=== PATIENT | female | born 1970 | race Caucasian/White ===

== ENCOUNTER → 2017-03-10 | Outpatient (CLI) | payer OTHER ==
[~2017-03-10] MED LIST: HYDR-3580 PO; LORT5TAB PO
[2017-03-10 10:50] LABS: AUTOMATED NEUTROPHIL # 5.7 TH/MM3 (1.8-7.7); BASOPHIL % 0.3 % (0.0-2.0); EOSINOPHIL # 0.1 TH/MM3 (0-0.4); EOSINOPHIL % 0.9 % (0.0-4.0); HEMATOCRIT 40.8 % (35.0-46.0); HEMOGLOBIN 13.9 GM/DL (11.6-15.3); LYMPH % 27.1 % (9.0-44.0); LYMPHOCYTE # 2.5 TH/MM3 (1.0-4.8); MEAN CELL VOLUME 94.6 FL (80.0-100.0); MEAN CORPUSCULAR HEMOGLOBIN 32.3 PG (27.0-34.0); MEAN CORPUSCULAR HGB CONC 34.1 % (32.0-36.0); MEAN PLATELET VOLUME 8.4 FL (7.0-11.0); MONO % 10.9 % (0.0-8.0); NEUT % 60.8 % (16.0-70.0); PLATELET COUNT 244 TH/MM3 (150-450); RED BLOOD COUNT 4.32 MIL/MM3 (4.00-5.30); RED CELL DISTRIBUTION WIDTH 13.8 % (11.6-17.2); WHITE BLOOD COUNT 9.4 TH/MM3 (4.0-11.0)
[2017-03-10 10:52] LABS: BILIRUBIN, URINE NEG (NEG); BLOOD, URINE TRACE (NEG); GLUCOSE,URINE NEG (NEG); KETONE, URINE NEG (NEG); MUCUS URINE FEW /lpf (OCC); NITRITE,URINE NEG (NEG); SQUAMOUS EPITHELIAL CELL URINE 1 /hpf (0-5); URINE COLOR YELLOW (YELLW/STRAW); URINE LEUKOCYTE ESTERASE NEG (NEG)
[2017-03-10 11:06] LABS: BICARBONATE 26.9 MEQ/L (21.0-32.0); BLOOD UREA NITROGEN 12 MG/DL (7-18); CALCIUM 9.3 MG/DL (8.5-10.1); CREATININE 0.54 MG/DL (0.50-1.00); GLOMERULAR FILTRATION RATE 122 ML/MIN (>89); GLUCOSE,FASTING 81 MG/DL (74-99)
[2017-03-10 12:31] LABS: CHLORIDE 105 MEQ/L (98-107); SODIUM (NA) 141 MEQ/L (136-145)
== END ==
LOC: CPRE 10:07
PROVIDERS: ATTEND Obstetrics & Gynecology
DX: Z01.812 Encounter for preprocedural laboratory examination (principal); R10.2 Pelvic and perineal pain
CPT/HCPCS: 36415; 80048; 81001; 84703; 85025

== ENCOUNTER → 2017-05-10 | Outpatient (CLI) | payer OTHER ==
[~2017-05-10] MED LIST changes: -LORT5TAB PO
[2017-05-10 15:23] LABS: HEMATOCRIT 37.6 % (35.0-46.0); HEMOGLOBIN 13.3 GM/DL (11.6-15.3); MEAN CELL VOLUME 93.8 FL (80.0-100.0); MEAN CORPUSCULAR HGB CONC 35.2 % (32.0-36.0); MEAN PLATELET VOLUME 8.3 FL (7.0-11.0); PLATELET COUNT 196 TH/MM3 (150-450); RED BLOOD COUNT 4.01 MIL/MM3 (4.00-5.30); RED CELL DISTRIBUTION WIDTH 14.3 % (11.6-17.2); WHITE BLOOD COUNT 7.9 TH/MM3 (4.0-11.0)
[2017-05-10 15:37] LABS: BILIRUBIN, URINE NEG (NEG); BLOOD, URINE TRACE (NEG); GLUCOSE,URINE NEG (NEG); KETONE, URINE NEG (NEG); NITRITE,URINE NEG (NEG); PH, URINE 5.5 (5.0-8.5); SQUAMOUS EPITHELIAL CELL URINE 2 /hpf (0-5); URINE COLOR YELLOW (YELLW/STRAW); URINE LEUKOCYTE ESTERASE NEG (NEG)
== END ==
LOC: CPRE 14:33
PROVIDERS: ATTEND Obstetrics & Gynecology
DX: Z01.812 Encounter for preprocedural laboratory examination (principal); N93.8 Other specified abnormal uterine and vaginal bleeding; N94.6 Dysmenorrhea, unspecified
CPT/HCPCS: 36415; 81001; 84703; 85027

== ENCOUNTER → 2017-05-25 | Day surgery (SDC) | payer OTHER ==
[~2017-05-25] VITALS: Ht 152.4 cm; Wt 68.1 kg
[~2017-05-25] MED LIST changes: +*morphine SULFATE 8 MG/ML PERIprocedure ONLY ONE; +ACETAMINOPHEN 1000 MG/100 ML 100 ML IV ONE; +BUPIVACAINE/EPINEPHRINE 0.25% 50 ML VIAL ONE; +CELE10TA PO; +CHLORHEXIDINE GLUCONATE 2 % 1 PACK (2 CLOTHS) TOPICAL PRN; +DEXAMETHASONE SOD PHOS 4 MG/ML VIAL IV ONE; +DEXMEDETOMIDINE HCL 200 MCG/2 ML VIAL ONE; +DO NOT ADM ANY ANTICOAGULANT DRUGS PRN; +DOXY100C PO; +FAMOTIDINE 20 MG/2 ML VIAL ONE; +FUROSEMIDE 40 MG/4 ML VIAL ONE; +GLYCOPYRROLATE 1 MG/5 ML SYRINGE IV PUSH ONE; +HYDROmorphone HCL PF 2 MG/ML VIAL ONE; +INSULIN HUMAN REGULAR 1,000 UNITS/10 ML VIAL SQ PRN; +KETOROLAC TROMETHAMINE 30 MG/ML (IVP) VIAL IV PUSH ONE; +KETOROLAC TROMETHAMINE 60 MG/2 ML (IM) VIAL IM PRN; +LACTATED RINGER'S 1000 ML IV PRN; +LIDOCAINE HCL 1% PF 5 ML SYRINGE OTHER ONE; +METOPROLOL TARTRATE 25 MG TAB PO PRN; +MIDAZOLAM HCL 2 MG/2 ML VIAL ONE; +NEOSTIGMINE 5 MG/5 ML SYRINGE IV PUSH ONE; +ONDANSETRON HCL 4 MG/2 ML VIAL IV ONE; +ONDANSETRON HCL 4 MG/2 ML VIAL IV PUSH PRN; +POVIDONE IODINE 5% (ANTISEPSIS KIT) 4 APPLICATIONS EACH NARE PRN; +PROPOFOL 200 MG/20 ML AMP IV ONE; +RESP: ALBUTEROL 2.5 MG/3 ML NEB (PRN) ONE; +ROCURONIUM INJ 50 MG/5 ML SYRINGE IV PUSH ONE; +SODIUM CHLORID 0.9% 500 ML IV PRN; +SODIUM CHLORIDE 0.9% 20 ML VIAL IV ONE; +oxyCODONE/ACETAMINOPHEN 5 MG/325 MG TAB ONE; +oxyCODONE/ACETAMINOPHEN 5 MG/325 MG TAB PO PRN
--- NOTE | 2017-05-25 10:29 | MP ---
cc: Apple Boothe MD DATE OF OPERATION: 05/25/2017 PREOPERATIVE DIAGNOSES: Dysfunctional uterine bleeding, dysmenorrhea, left hydrosalpinx. POSTOPERATIVE DIAGNOSES: Dysfunctional uterine bleeding, dysmenorrhea, left hydrosalpinx. PROCEDURE: Examination under anesthesia, laparoscopic-assisted supracervical hysterectomy, left salpingo-oophorectomy, right salpingectomy, cystoscopy. SURGEON: Dr. Boothe. ANESTHESIA: General endotracheal anesthesia. FLUIDS: 1000 mL crystalloid. ESTIMATED BLOOD LOSS: 150 mL URINE OUTPUT: 400 mL clear yellow at the end of the procedure. FINDINGS: A large left hydrosalpinx was noted with adhesions to the left ovary and the left sigmoid. The rt ovary appeared normal. Uterus appeared normal. PROCEDURE: The patient was taken to the operating room where general anesthesia was found to be adequate. She was then prepped and draped in the normal sterile fashion in the dorsal lithotomy position. A Lynn catheter was inserted into the urinary bladder using sterile technique. A speculum was placed in the vagina. Single-tooth tenaculum applied to the anterior lip of the cervix. The cervix was then gently dilated to accommodate the small-sized VCare uterine manipulator. A stitch was placed in the anterior lip of the cervix. The tenaculum was removed. The VCare was positioned. The balloon was inflated inside of the uterus. The cups were positioned. The speculum was removed. The gloves were changed, and attention was turned to the abdominal portion of the procedure. A 5 mm incision was made just above the umbilicus and a 5 mm trocar and camera were inserted into the abdominal cavity under direct visualization. The abdomen was insufflated with approximately 3.5 liters of CO2 gas. A 5 mm trocar was placed in the right lower quadrant under direct visualization. A 10/12 mm trocar was placed in the left lower quadrant under direct visualization. The findings were then noted as above. The round ligaments were transected bilaterally with the Harmonic scalpel, and the bladder flap was created using the Harmonic scalpel bilaterally. The bladder was gently dissected off the anterior surface of the cervix and the uterus. The distal segment of the right fallopian tube was then transected from the right broad ligament and sent to pathology. The uteroovarian ligaments were transected bilaterally using the Harmonic scalpel, and the remaining broad ligaments, uterine arteries were transected bilaterally using the Harmonic scalpel down to the level of the cervix. The uterus was then amputated from the cervix and extracted, sent to pathology. The cervical canal was cauterized using the Harmonic scalpel. The left hydrosalpinx and left ovary were gently dissected off of the sigmoid colon using the Harmonic scalpel as well blunt dissection. Chocolate fluid was noted within the hydrosalpinx. The infundibulopelvic ligament on the left side was transected using the Harmonic scalpel, and the left tube and ovary were transected from the left broad ligament with the Harmonic scalpel. This was placed in an EndoCatch, removed and sent to pathology. Hemostasis was noted from all the pedicles. Surgicel was placed over the raw surface areas. The pelvis was suctioned and irrigated. The Suture Ease suture passer was used to close the fascia and peritoneum with 2 sutures of 0 Vicryl on the left lower quadrant incision. The gas was allowed to escape. All the instruments and trocars were removed from the abdominal cavity. The skin incisions were closed with 4-0 Monocryl. The Lynn catheter was used to instill approximately 250 mL of saline into the urinary bladder. The Lynn catheter was removed. Cystoscopy was performed. No bladder injury was noted, and urine was noted to be effluxing from both of the ureteral meatuses. The cystoscope was removed. The Lynn catheter was replaced. The suture was cut from the anterior lip of the cervix. All of the instruments were removed from the vagina. The patient was awakened from anesthesia and transferred to recovery room in stable condition. The sponge, lap, needle and instrument counts were correct. Pathology was uterus, bilateral fallopian tubes and left ovary. MD JOSH Gonsalez/MARCIANO , 10:08 AM , 10:28 AM NATE
[2017-05-25 11:50] VITALS: BP 107/69; PULSE 75; RESP 18; TEMP 97.8; O2SAT 98
== END | disposition home or self-care (01) ==
LOC: HSDC 06:03
PROVIDERS: ATTEND Obstetrics & Gynecology
DX: N80.0 Endometriosis of uterus (principal); N93.8 Other specified abnormal uterine and vaginal bleeding; N94.6 Dysmenorrhea, unspecified; N83.8 Other noninflammatory disorders of ovary, fallopian tube and broad ligament; N70.11 Chronic salpingitis
CPT/HCPCS: 00840; 58661; 86850; 86900; 86901; 88307; J0131; J1170; J1940; J2250; J2270; J3010; J7120; J7613; J1100; J1885; J2405; J2710